=== PATIENT | female | born 1970 | race Two or more races ===

== ENCOUNTER → 2025-04-08 | Emergency (ER) | payer BC ==
[~2025-04-08] VITALS: Ht 167.6 cm; Wt 77.1 kg
[~2025-04-08] MED LIST: CLIMARA1 EAC3 TD; DEXAMETHASONE SODIUM PHOSPHATE 4 MG/ML VIAL IM ONE; DEXAMETHASONE SODIUM PHOSPHATE 4 MG/ML VIAL ONE; GABAPENTIN100 MG PO; IBUPROFEN800 MG PO; KETOROLAC TROMETHAMINE 60 MG VIAL IM ONE; PROGESTERONE200 MG PO; RESTORIL15 MG PO; VOQUEZNA10 MG PO; ZEPBOUND PO
== END | disposition home or self-care (01) ==
LOC: ER 14:56
DX: M54.9 Dorsalgia, unspecified (principal); M54.30 Sciatica, unspecified side